=== PATIENT | male | born 1940 | race Caucasian/White ===

== ENCOUNTER 2017-08-14 14:41 | Inpatient (IN) | payer MEDICARE ==
[~2017-08-14] VITALS: Ht 175.3 cm; Wt 66.3 kg
[2017-08-14 15:19] VITALS: BP 133/77; PULSE 64; RESP 14; TEMP 98.2; O2SAT 98
[2017-08-14 16:00] VITALS: BP 125/76; PULSE 55; RESP 14; O2SAT 100
--- NOTE | 2017-08-14 16:19 | PD ---
HPI Chief Complaint: Psychiatric Symptoms Time Seen by Provider: 15:30 Travel History International Travel<30 days: No Contact w/Intl Traveler<30days: No Traveled to known affect area: No History of Present Illness HPI 77 YO M with PMH of chronic alcoholism, seizure disorder, pancreatic CA presents to the ED under Luna act from [place] [facility] from [facility]. According to the Luna act the patient was standing in the roadway and would not move after being told multiple times by the founder and chief executive officer. Patient also yelled several times " I need help" during this encounter. On arrival to [facility] the patient endorses a history of bipolar. He also stated he is noncompliant with Depakote. He reports last seizure being one year ago. He endorses drinking alcohol every day. He was administered 0.1 mg clonidine, Vistaril 50 mg by mouth and 2 mg Ativan by mouth at 9:00 this morning. Per the report from the receiving nurse the patient was transferred to the hospital because "he is beyond the scope of care [facility]." On arrival the patient is somnolent, but rouses easily to voice. He answers questions appropriately. He is resistant to exam, cursing repeatedly and closing his eyes and not responding willfully. PFSH Past Medical History Bipolar Disorder: Yes Diminished Hearing: No Seizures: Yes Tetanus Vaccination: Unknown Past Surgical History Surgical History: Unable to Obtain Social History Alcohol Use: Yes Tobacco Use: No Substance Use: No Allergies-Medications (Allergen,Severity, Reaction): Coded Allergies: No Known Allergies (Unverified , 08/14/17) Reported Meds & Prescriptions Reported Meds & Active Scripts Active Active Prescriptions or Reported Medications Unobtainable Review of Systems ROS Limitations: Uncooperative Except as stated in HPI: all other systems reviewed are Neg Physical Exam Exam Limitations: Uncooperative Narrative GENERAL: Well-nourished, well-developed thin white male in no acute distress. SKIN: Focused skin assessment warm/dry. HEAD: Normocephalic. Atraumatic. EYES: No scleral icterus. No injection or drainage. PERRLA. EOMI. NECK: Supple, trachea midline. No JVD or lymphadenopathy. CARDIOVASCULAR: Regular rate and rhythm without murmurs, gallops, or rubs. RESPIRATORY: No accessory muscle use. Breath sounds clear bilaterally. GASTROINTESTINAL: Abdomen soft, non-tender, nondistended. Active bowel sounds. MUSCULOSKELETAL: No cyanosis, or edema. NEUROLOGICAL: Oriented 4. Cranial nerves II through XII intact. Motor and sensory grossly within normal limits. Five out of 5 muscle strength in all muscle groups. Normal speech. BACK: Nontender without obvious deformity. No CVA tenderness. Data Data Last Documented VS Vital Signs Date Time Temp Pulse Resp B/P (MAP) Pulse Ox O2 Delivery O2 Flow Rate FiO2 08/14/17 18:00 54 15 144/73 (96) 100 Room Air 08/14/17 15:19 98.2 Orders Orders Complete Blood Count With Diff (08/14/17 15:30) Comprehensive Metabolic Panel (08/14/17 15:30) Electrocardiogram (08/14/17 15:30) Psych Screen (08/14/17 15:30) Drug Screen, Random Urine (08/14/17 15:30) Alcohol (Ethanol) (08/14/17 15:30) ^ Straight Catheter (08/14/17 17:36) Alcohol Withdrawal Asmt-Ciwa ONCE (08/14/17 21:07) Flumazenil Inj (Romazicon Inj) (08/14/17 21:15) Lorazepam (Ativan) (08/14/17 21:15) Lorazepam Inj (Ativan Inj) (08/14/17 21:15) Lorazepam (Ativan) (08/14/17 21:15) Lorazepam Inj (Ativan Inj) (08/14/17 21:15) Lorazepam Inj (Ativan Inj) (08/14/17 21:15) Lorazepam Inj (Ativan Inj) (08/14/17 21:15) Labs Laboratory Tests Test 08/14/17 15:40 08/14/17 17:30 White Blood Count 4.5 TH/MM3 Red Blood Count 4.09 MIL/MM3 Hemoglobin 12.9 GM/DL Hematocrit 39.6 % Mean Corpuscular Volume 96.8 FL Mean Corpuscular Hemoglobin 31.5 PG Mean Corpuscular Hemoglobin Concent 32.5 % Red Cell Distribution Width 16.4 % Platelet Count 219 TH/MM3 Mean Platelet Volume 7.8 FL Neutrophils (%) (Auto) 48.9 % Lymphocytes (%) (Auto) 40.7 % Monocytes (%) (Auto) 7.6 % Eosinophils (%) (Auto) 2.1 % Basophils (%) (Auto) 0.7 % Neutrophils # (Auto) 2.2 TH/MM3 Lymphocytes # (Auto) 1.8 TH/MM3 Monocytes # (Auto) 0.3 TH/MM3 Eosinophils # (Auto) 0.1 TH/MM3 Basophils # (Auto) 0.0 TH/MM3 CBC Comment DIFF FINAL Differential Comment Blood Urea Nitrogen 17 MG/DL Creatinine 0.79 MG/DL Random Glucose 80 MG/DL Total Protein 6.8 GM/DL Albumin 2.7 GM/DL Calcium Level 8.4 MG/DL Alkaline Phosphatase 78 U/L Aspartate Amino Transf (AST/SGOT) 30 U/L Alanine Aminotransferase (ALT/SGPT) 32 U/L Total Bilirubin 0.3 MG/DL Sodium Level 139 MEQ/L Potassium Level 4.6 MEQ/L Chloride Level 104 MEQ/L Carbon Dioxide Level 28.7 MEQ/L Anion Gap 6 MEQ/L Estimat Glomerular Filtration Rate 96 ML/MIN Ethyl Alcohol Level LESS THAN 3 MG/DL Urine Opiates Screen NEG Urine Barbiturates Screen NEG Urine Amphetamines Screen NEG Urine Benzodiazepines Screen NEG Urine Cocaine Screen NEG Urine Cannabinoids Screen NEG MDM Medical Decision Making Medical Screen Exam Complete: Yes Emergency Medical Condition: Yes Differential Diagnosis Adjustment disorder versus anxiety versus bipolar versus depression versus dementia versus electrolyte disorder versus malingering versus mood disorder versus ODD versus psychosis versus PTSD versus schizophrenia versus schizoaffective disorder versus substance-induced mood disorder versus other Narrative Course 77 YO M with PMH of chronic alcoholism, seizure disorder, pancreatic CA presents to the ED under Luna act from [place] [employer] from [facility]. According to the Luna act the patient was standing in the roadway and would not move after being told multiple times by the founder and chief executive officer. Patient also yelled several times " I need help" during this encounter. On arrival to [facility] the patient endorses a history of bipolar. He also stated he is noncompliant with Depakote. He reports last seizure being one year ago. He endorses drinking alcohol every day. He was administered 0.1 mg clonidine, Vistaril 50 mg by mouth and 2 mg Ativan by mouth at 9:00 this morning. Per the report from the receiving nurse the patient was transferred to the hospital because "he is beyond the scope of care [facility]." On arrival the patient is somnolent, but rouses easily to voice. He answers questions appropriately. He is resistant to exam, cursing repeatedly and closing his eyes and not responding willfully. EKG rate 60, sinus rhythm. WI interval 145, QRS 94, QTc 462 ms[address] Normal axis. No ST changes. Reviewed by Dr. De La Cruz. No concerning abnormalities of CBC, CMP. Tox screen negative. Alcohol less than 3. Patient was placed on CIWA protocol. He is medically clear for psychiatric evaluation. Awaiting psychiatric recommendations. Scripts Unable to Obtain Active Prescriptions or Reported Meds Candice Angela Aug 14, 2017 16:19
[2017-08-14 16:26] LABS: AUTOMATED NEUTROPHIL # 2.2 TH/MM3 (1.8-7.7); BASOPHIL % 0.7 % (0.0-2.0); EOSINOPHIL # 0.1 TH/MM3 (0-0.4); EOSINOPHIL % 2.1 % (0.0-4.0); HEMATOCRIT 39.6 % (39.0-51.0); HEMO FLAGS DIFF FINAL; LYMPH % 40.7 % (9.0-44.0); LYMPHOCYTE # 1.8 TH/MM3 (1.0-4.8); MEAN CELL VOLUME 96.8 FL (80.0-100.0); MEAN CORPUSCULAR HEMOGLOBIN 31.5 PG (27.0-34.0); MEAN CORPUSCULAR HGB CONC 32.5 % (32.0-36.0); MONO % 7.6 % (0.0-8.0); NEUT % 48.9 % (16.0-70.0); PLATELET COUNT 219 TH/MM3 (150-450); RED BLOOD COUNT 4.09 MIL/MM3 (4.50-5.90); RED CELL DISTRIBUTION WIDTH 16.4 % (11.6-17.2); WHITE BLOOD COUNT 4.5 TH/MM3 (4.0-11.0)
[2017-08-14 16:54] LABS: ALKALINE PHOSPHATASE 78 U/L (45-117); ALT (GPT) 32 U/L (12-78); TOTAL BILIRUBIN ADULT 0.3 MG/DL (0.2-1.0)
[2017-08-14 17:00] VITALS: BP 107/62; PULSE 52; RESP 17; O2SAT 100
[2017-08-14 17:07] LABS: ANION GAP 6 MEQ/L (5-15); AST (GOT) 30 U/L (15-37); BICARBONATE 28.7 MEQ/L (21.0-32.0); BLOOD UREA NITROGEN 17 MG/DL (7-18); CHLORIDE 104 MEQ/L (98-107); GLOMERULAR FILTRATION RATE 96 ML/MIN (>89); POTASSIUM 4.6 MEQ/L (3.5-5.1); SODIUM (NA) 139 MEQ/L (136-145)
[2017-08-14 17:08] LABS: ALCOHOL LESS THAN 3 MG/DL (0-5)
[2017-08-14 18:00] VITALS: BP 144/73; PULSE 54; RESP 15; O2SAT 100
[2017-08-14] MEDS ORDERED: FLUMAZENIL 0.5 MG/5 ML VIAL IV PUSH PRN (21:15)
[2017-08-14] MEDS ORDERED: LORazepam 2 MG/ML VIAL IV PUSH PRN ×4 (21:15)
[2017-08-14] MEDS ORDERED: LORazepam 1 MG TAB PO PRN (21:15)
[2017-08-14] MEDS ORDERED: LORazepam 2 MG TAB PO PRN (21:15)
[2017-08-14 21:27] VITALS: BP 157/79; PULSE 69; RESP 20; O2SAT 98
--- NOTE | 2017-08-15 13:41 | EKG ---
Date Performed: 08/14/2017 Time Performed: 15:24:45 PTAGE: 77 years EKG: Sinus rhythm Within normal limits NO PREVIOUS TRACING DOCTOR: Ian Carney Interpretating Date/Time 08/15/2017 13:41:06
--- NOTE | 2017-08-15 15:29 | PD ---
History of Present Illness Chief Complaint: Psychiatric Symptoms Time Seen by Provider: 15:00 Travel History International Travel<30 Days: No Contact w/Intl Traveler<30days: No Known affected area: No Legal Status Legal Status: Cheryl Act History of Present Illness: 77-year-old male with obvious dementia, Cheryl acted for standing in the middle of a road way and yelling in front of a military lawyer. Upon interview , the patient states he was looking for his second , from whom he is . He also states he needs to take a flight on the [employer] today. When he was asked to get out of the roadway by law enforcement, he yelled several times "I need help". Patient provides various explanations for his behavior, none of which makes sense. He is obviously confused and unable to care for himself at this time. Patient was apparently screened at [facility] and admitted to a history of bipolar disorder but did not know his medications, admitted that he consumes alcohol, but is not accurate about what he drank, and aunt has a history of seizures and and was in a car accident. There is also some history that this 77-year-old man was incarcerated. Patient is not felt to be a reliable historian. PFSH Past Medical History Bipolar Disorder: Yes Diminished Hearing: No Seizures: Yes Tetanus Vaccination: Unknown Past Surgical History Surgical History: Unable to Obtain Psychiatric History Psychiatric History Hx Psychiatric Treatment: Unknown Social History Hx Alcohol Use: Yes Hx Tobacco Use: No Hx Substance Use: No Allergies-Medications (Allergen,Severity, Reaction): Coded Allergies: No Known Allergies (Unverified , 08/14/17) Reported Meds & Prescriptions Reported Meds & Active Scripts Active Active Prescriptions or Reported Medications Unobtainable Review of Systems ROS Limitations: Poor Historian Except as stated in HPI: all other systems reviewed are Neg Exam Alert: Yes [place]: Person Mood: Anxious Affect: Labile Speech: Clear Eye Contact: Normal Insight/Judgement Impaired MDM Medical Decision Making Medical Record Reviewed: Yes Assessment/Plan Patient interviewed at bedside, medical record reviewed and case discussed with nurse. Patient likely has a history of cognitive deficits, whether they be the result of dementia, psychiatric process or both. He is dangerous to himself and unable to care for himself at this time. He does meet criteria for Luna acted involuntary psychiatric hospitalization. Orders Orders Complete Blood Count With Diff (08/14/17 15:30) Comprehensive Metabolic Panel (08/14/17 15:30) Electrocardiogram (08/14/17 15:30) Psych Screen (08/14/17 15:30) Drug Screen, Random Urine (08/14/17 15:30) Alcohol (Ethanol) (08/14/17 15:30) ^ Straight Catheter (08/14/17 17:36) Alcohol Withdrawal Asmt-Ciwa ONCE (08/14/17 21:07) Flumazenil Inj (Romazicon Inj) (08/14/17 21:15) Lorazepam (Ativan) (08/14/17 21:15) Lorazepam Inj (Ativan Inj) (08/14/17 21:15) Lorazepam (Ativan) (08/14/17 21:15) Lorazepam Inj (Ativan Inj) (08/14/17 21:15) Lorazepam Inj (Ativan Inj) (08/14/17 21:15) Lorazepam Inj (Ativan Inj) (08/14/17 21:15) Diet Regular Basic (08/15/17 Breakfast) Diet Regular Basic (08/15/17 Lunch) Results Vital Signs Date Time Temp Pulse Resp B/P (MAP) Pulse Ox O2 Delivery O2 Flow Rate FiO2 08/14/17 21:27 69 20 157/79 (105) 98 Room Air 08/14/17 18:00 54 15 144/73 (96) 100 Room Air 08/14/17 17:00 52 17 107/62 (77) 100 Room Air 08/14/17 16:00 55 14 125/76 (92) 100 Room Air 08/14/17 15:34 64 14 Laboratory Tests Test 08/14/17 15:40 08/14/17 17:30 White Blood Count 4.5 Red Blood Count 4.09 Hemoglobin 12.9 Hematocrit 39.6 Mean Corpuscular Volume 96.8 Mean Corpuscular Hemoglobin 31.5 Mean Corpuscular Hemoglobin Concent 32.5 Red Cell Distribution Width 16.4 Platelet Count 219 Mean Platelet Volume 7.8 Neutrophils (%) (Auto) 48.9 Lymphocytes (%) (Auto) 40.7 Monocytes (%) (Auto) 7.6 Eosinophils (%) (Auto) 2.1 Basophils (%) (Auto) 0.7 Neutrophils # (Auto) 2.2 Lymphocytes # (Auto) 1.8 Monocytes # (Auto) 0.3 Eosinophils # (Auto) 0.1 Basophils # (Auto) 0.0 CBC Comment DIFF FINAL Differential Comment Blood Urea Nitrogen 17 Creatinine 0.79 Random Glucose 80 Total Protein 6.8 Albumin 2.7 Calcium Level 8.4 Alkaline Phosphatase 78 Aspartate Amino Transf (AST/SGOT) 30 Alanine Aminotransferase (ALT/SGPT) 32 Total Bilirubin 0.3 Sodium Level 139 Potassium Level 4.6 Chloride Level 104 Carbon Dioxide Level 28.7 Anion Gap 6 Estimat Glomerular Filtration Rate 96 Ethyl Alcohol Level LESS THAN 3 Urine Opiates Screen NEG Urine Barbiturates Screen NEG Urine Amphetamines Screen NEG Urine Benzodiazepines Screen NEG Urine Cocaine Screen NEG Urine Cannabinoids Screen NEG Diagnosis Primary Impression: Dementia with behavioral disturbance Additional Impression: Alzheimer's dementia with behavioral disturbance Prescriptions Unable to Obtain Active Prescriptions or Reported Meds Problem Qualifiers Ian Jerome MD Aug 15, 2017 15:29
[2017-08-15 16:39] VITALS: BP 199/91; PULSE 71; RESP 20; O2SAT 100
[2017-08-16 04:53] VITALS: BP 164/86; PULSE 75; RESP 20; TEMP 97.5; O2SAT 99
[2017-08-16 09:00] VITALS: BP 132/69; PULSE 77; RESP 16; O2SAT 97
[2017-08-16 15:13] VITALS: BP 167/84; PULSE 66; RESP 16; O2SAT 100
[2017-08-16] MEDS ORDERED: CREO3000 PO (18:35)
[2017-08-16] MEDS ORDERED: DEPA500T3 PO (18:36)
[2017-08-16] MEDS ORDERED: PANT20 PO (18:36)
[2017-08-16 18:37] VITALS: BP 170/88; PULSE 70; RESP 18; O2SAT 100
[2017-08-16] MEDS ORDERED: FERR325C PO (18:37)
[2017-08-16] MEDS ORDERED: LORazepam 2 MG/ML VIAL - age > 65 yrs IM PRN ×2 (20:15→22:00)
[2017-08-16] MEDS ORDERED: ALUMINUM/MAGNESIUM/SIMETH 30 ML CUP PO PRN (20:15)
[2017-08-16] MEDS ORDERED: ACETAMINOPHEN 325 MG TAB PO PRN (20:15)
[2017-08-16] MEDS ORDERED: MAGNESIUM HYDROXIDE SUSP 30 ML CUP PO PRN (20:15)
[2017-08-16] MEDS: REMOVE OLD NICOTINE PATCH T-DERMAL SCH ×2 (21:00→23:31)
[2017-08-16] MEDS ORDERED: LORazepam 0.5 MG TAB age > 65 yrs PO PRN (22:00)
[2017-08-16 23:17] VITALS: BP 167/79; PULSE 68; RESP 18; TEMP 98.3
[2017-08-17 06:02] VITALS: BP 177/86; PULSE 78; RESP 18; TEMP 98.2
[2017-08-17 08:38] LABS: HDL CHOLESTEROL 81.1 MG/DL (40.0-60.0); LDL CHOLESTEROL 51 MG/DL (0-99)
[2017-08-17 08:57] LABS: ANION GAP 6 MEQ/L (5-15); BLOOD UREA NITROGEN 13 MG/DL (7-18); CHLORIDE 99 MEQ/L (98-107); GLOMERULAR FILTRATION RATE 105 ML/MIN (>89); POTASSIUM 4.7 MEQ/L (3.5-5.1); SODIUM (NA) 136 MEQ/L (136-145)
[2017-08-17] MEDS: NICOTINE 21 MG/24 HR PATCH T-DERMAL SCH (09:00)
[2017-08-17 11:18] LABS: HEMOGLOBIN A1a 1.2 %; HEMOGLOBIN A1b 0.8 %; HEMOGLOBIN LA1C 2.3 %; HEMOGLOBIN P3 5.3 %
--- NOTE | 2017-08-17 15:19 | HHI.HP ---
Provisional Diagnosis Admission Date Aug 16, 2017 at 19:38 Paloma I. Unspecified psychosis; alcohol use disorder Paloma II. deferred Paloma III. Seizure dso?, history of pancreatic cancer s/p Whipple procedure Paloma IV. poor social support Paloma V. 40 Certification of Person's Competence To Provide Express and Informed Consent I have personally examined Hesham Katz , a person being served at [facility] on, Aug 17, 2017 15:04. Express and informed consent means consent voluntarily given in writing, by a competent person, after sufficient explanation and disclosure of the subject matter involved to enable the person to make a knowing and willful decision without any element of force, fraud, deceit, duress, or other form of constraint or coercion. This person is 18 years of age or older, is not now known to be incompetent to consent to treatment with a guardian advocate, and does not have a health care surrogate or proxy currently making medical treatment decisions. I have found this person to be one of the following: [] Competent to provide express and informed consent, as defined above, for voluntary admission to this facility and is competent to provide express and informed consent for treatment. He/she has the consistent capacity to make well reasoned, willful, and knowing decisions concerning his or her medical or mental health treatment. The person fully and consistently understands the purpose of the admission for examination/placement and is fully capable of personally exercising all rights assured [place] [x] Incompetent to provide express and informed consent to voluntary admission, and this is incompetent to provide express and informed consent to treatment. The person must be transferred to involuntary status and a petition for a guardian advocate filed with the Circuit Court. [] Refusing to provide express and informed consent to voluntary admission but is competent to provide express and informed consent for treatment. The person must be discharged or transferred to involuntary status. Form shall be completed within 24 hours of a person's arrival at the receiving facility and filed in the clinical record of each person: 1. Admitted on a voluntary basis 2. Permitted to provide express and informed consent to his/her own treatment 3. Allowed to transfer from involuntary to voluntary status 4. Prior to permitting a person to consent to his or her own treatment after having been previously found incompetent to consent to treatment. History of Present Illness Capacity: Has Capacity (capacity for medications) HPI Patient is a 77 y/o man, with in care home, reports common law in [facility], retired living on social security benefits, domiciled alone, past psychiatric history of bipolar disorder as per patient, one prior remote psychiatric admission, no previous suicide attempt or self- injurious behavior, who was brought into the hospital under Luna act as it was reported patient was standing in the middle of the roadway and yelling fun of criminal defense lawyer. Patient was transferred to the inpatient psychiatric unit for further management and evaluation. Patient was found walking around the unit but able to engage in interview today. Patient states that he was Luna acted for supposedly wandering. He stated that he has thought his common- law had arrived from [place] and he believes she was wandering here and had gone to look for her. He states that he had thought his had told him to meet him at a night club but upon arriving there around 2 AM found that it was closed which he then proceeded to a restaurant near and waited there about 20 minutes and decided to look for her at a school campus. He states that after being unsuccessful in finding her decided to go back to his house where he had difficulty charging his phone. He states that he then proceeded to knock on various neighbors homes at 3 AM and was found walking in the street had which police had brought him into the hospital. He also mentions that there was a neighbor that with previous criminal history had stolen something from him. Currently patient states feeling okay denies any SI or HI, AVH or delusions at this time. Patient later approach tech writer and began providing demographic information. Psychiatric family history: Denies Past psychiatric history: Self-reported diagnosis of bipolar disorder, one remote previous psychiatric hospitalization, denies any previous suicide attempt or self-injurious behavior. Reports having been prescribed Depakote by Dr. Mason his primary care doctor which she last saw a couple of months ago. Substance use disorder: Alcohol use daily with about a half a bottle of wine in a couple of beers, last drink was on 08/14/17 which she drank half a bottle of wine in a couple of beers. Patient reports he had been attending AA meetings for 35 years but relapsed about 5 years ago when his was put in a care home. Patient denies any previous illegal substance use. Past medical history: Hypertension, pancreatitis cancer status post Whipple procedure (currently on pancreatic enzymes supplements and Protonix). Allergies: Penicillin Social history: with in care home, also reports having, the in [place], retired also security benefits, lives alone. Contact: Elaine Rivera [phone]. Review of Systems Except as stated in HPI: all other systems reviewed are Neg Past Psych History Violence risk - others (6 mos) low Violence risk - self (6 mos) low Substance Abuse History Drugs/Alcohol past 12 months Alcohol use daily with about a half a bottle of wine in a couple of beers, last drink was on 08/14/17 which she drank half a bottle of wine in a couple of beers. Patient reports he had been attending AA meetings for 35 years but relapsed about 5 years ago when his was put in a care home. Patient denies any previous illegal substance use. Past Family Social History Coded Allergies: Penicillins (Verified Allergy, Unknown, 08/16/17) Reported Medications Ferrous Sulfate (Iron) 325 Mg Cap, 325 MG PO BIDPC for Nutritional Supplement, # 60 TAB 0 Refills 08/16/17 Divalproex ER (Depakote ER) 500 Mg Sarah, 1000 MG PO DAILY for Control Seizures , #60 TAB 0 Refills 08/16/17 Pantoprazole (Protonix) 20 Mg Tab, 20 MG PO DAILY for Reflux, #30 TAB 0 Refills 08/16/17 Pancrelipase (Creon) 3,000-9,500-15,000 Units Cap, 1 CAP PO TIDPC for Digestive Aid, #90 CAP 0 Refills 08/16/17 Current Medications Medications (Trade) Dose Ordered Sig/Mely Route Start Time Stop Time Status Last Admin (Romazicon Inj) 0.2 mg Q1M PRN IV PUSH 08/14/17 21:15 (Ativan) 1 mg Q4H PRN PO 08/14/17 21:15 08/16/17 07:24 (Ativan Inj) 1 mg Q4H PRN IV PUSH 08/14/17 21:15 08/15/17 18:26 (Ativan) 2 mg Q2H PRN PO 08/14/17 21:15 (Ativan Inj) 2 mg Q2H PRN IV PUSH 08/14/17 21:15 (Ativan Inj) 2 mg Q1H PRN IV PUSH 08/14/17 21:15 (Ativan Inj) 2 mg Q15M PRN IV PUSH 08/14/17 21:15 (Ativan) 0.5 mg Q12H PRN PO 08/16/17 20:15 (Ativan Inj) 0.5 mg Q12H PRN IM 08/16/17 20:15 (Tylenol) 650 mg Q4H PRN PO 08/16/17 20:15 (Milk Of Magnesia Liq) 30 ml DAILY PRN PO 08/16/17 20:15 (Mag-Al Plus Susp Liq) 30 ml Q6H PRN PO 08/16/17 20:15 (Habitrol 21 Mg Patch.24 Hr) 1 patch DAILY T-DERMAL 08/17/17 09:00 Miscellaneous Information 1 HS T-DERMAL 08/16/17 21:00 (Protonix) 20 mg DAILY PO 08/17/17 14:30 (Ferrous Sulfate) 325 mg BIDPC PO 08/17/17 18:00 Non-Formulary Medication 1 cap TIDPC PO 08/17/17 18:30 UNV Family History Patient denies Social History with in care home, also reports having, the in [facility], retired also security benefits, lives alone. Contact: Elaine Rivera [phone] ( common law in [facility]) Patient's Strengths (min. 2) Verbal and communicative Physical Exam Patient found to be sitting on hospital bed noted not to be in acute distress, no gross motor abnormalities, no tremors of EPS, noted psychomotor retardation Vital Signs Vital Signs Date Time Temp Pulse Resp B/P (MAP) Pulse Ox O2 Delivery O2 Flow Rate FiO2 08/17/17 06:02 98.2 78 18 177/86 (116) 08/16/17 18:37 100 Room Air I/O 08/17/17 08/17/17 08/18/17 08:00 16:00 00:00 Intake Total 720 ml Balance 720 ml Lab Results Test 08/17/17 07:15 Blood Urea Nitrogen 13 MG/DL Creatinine 0.73 MG/DL Random Glucose 102 MG/DL Calcium Level 9.0 MG/DL Sodium Level 136 MEQ/L Potassium Level 4.7 MEQ/L Chloride Level 99 MEQ/L Carbon Dioxide Level 31.0 MEQ/L Anion Gap 6 MEQ/L Estimat Glomerular Filtration Rate 105 ML/MIN Hemoglobin A1c 5.4 % Triglycerides Level 76 MG/DL Cholesterol Level 147 MG/DL LDL Cholesterol 51 MG/DL HDL Cholesterol 81.1 MG/DL Cholesterol/HDL Ratio 1.81 RATIO Valproic Acid (Depakene) Level 6 MCG/ML Mental Status Examination Appearance Patient appears stated age, fair grooming and hygiene, in casual clothing, calm and cooperative interview. Fair eye contact Speech: Unremarkable Orientation: x3 Memory: Recent (impaired) Thought Process: Tangential (at times), Other (disorganized at times) Thought Content: Unremarkable Language fluent and spontaneous Fund of Knowledge fair Hallucination Type: None Attention and Concentration: Good Suicidal Ideation: No Previous Suicide Attempts: No Homicidal Ideation: No Previous Homicide Attempts: No Insight: Poor Judgment: Poor Affect: Anxious Mood: Other ("fine") Motor Activity: Normal gait Assessment & Plan Problem List: (1) Unspecified psychosis ICD Codes: F29 - Unspecified psychosis not due to a substance or known physiological condition Assessment & Plan Patient is a 77 y/o man with a self-reported diagnosis of bipolar disorder, alcohol use disorder was brought in to work actively being found standing in the middle of the roadway and yelling at police officers. Patient noted to be somewhat disorganized at times and tangential during interview. Patient with history of heavy alcohol use and despite BAL being negative in ED. Patient's presentation is possibly psychosis vs. psychosis secondary to alcohol use, vs. neurocognitive disorder. Collateral information pending. Will restart depakote for history of seizure control. VPA level was subtherapeutic. Will defer starting neuroleptic for now and will continue to observe mood and behavior. Discharge planning in progress. Petition for involuntary admission completed. Second opinion requested. Discharge Planning At risk for further decompensation if at lower level of care Lane Hernandez MD Aug 17, 2017 15:19
[2017-08-17] MEDS: PANTOPRAZOLE SOD 20 MG DELAYED RELEASE TAB PO SCH (15:22)
--- NOTE | 2017-08-17 15:47 | PD.PSY.CON ---
Provisional Diagnosis Admission Date Aug 16, 2017 at 19:38 Cedar I. Unspecified psychosis; alcohol use disorder Cedar II. deferred Cedar III. Seizure dso?, history of pancreatic cancer s/p Whipple procedure Cedar IV. poor social support Cedar V. 40 History of Present Illness Service Psychiatry Consult Requested By Reason for Consult Second opinion Primary Care Physician Unknown HPI Patient is a 77 y/o man, with in halfway, reports common law in [facility], retired living on social security benefits, domiciled alone, past psychiatric history of bipolar disorder as per patient, one prior remote psychiatric admission, no previous suicide attempt or self- injurious behavior, who was brought into the hospital under Luna act as it was reported patient was standing in the middle of the roadway and yelling fun of civil lawyer. Patient was transferred to the inpatient psychiatric unit for further management and evaluation. Patient was found walking around the unit but able to engage in interview today. Patient states that he was Luna acted for supposedly wandering. He stated that he has thought his common- law had arrived from [place] and he believes she was wandering here and had gone to look for her. He states that he had thought his had told him to meet him at a night club but upon arriving there around 2 AM found that it was closed which he then proceeded to a restaurant near by and waited there about 20 minutes and decided to look for her at a school campus. He states that after being unsuccessful in finding her decided to go back to his house where he had difficulty charging his phone. He states that he then proceeded to knock on various neighbors homes at 3 AM and was found walking in the street had which police had brought him into the hospital. He also mentions that there was a neighbor that with previous criminal history had stolen something from him. Currently patient states feeling okay denies any SI or HI, AVH or delusions at this time. Patient later approach brief writer and began providing demographic information. Patient was seen for second opinion. Patient was seen along with Dr. Hernandez and social work administrator Niki. Patient reports that he has been drinking alcohol heavily. Recent Luna act by law enforcement system the related with disorganized behavior secondary to alcohol intoxication. However, patient is now clinically sober, but continued to behave erratically, with frequent thought derailment, disorganized thoughts. He denies suicidal and homicidal ideation, he denies visual and auditory hallucinations. The patient is oriented 3. Review of Systems Other No somatic complaints Past Family Social History Coded Allergies: Penicillins (Verified Allergy, Unknown, 08/16/17) Reported Medications Ferrous Sulfate (Iron) 325 Mg Cap, 325 MG PO BIDPC for Nutritional Supplement, # 60 TAB 0 Refills 08/16/17 Divalproex ER (Depakote ER) 500 Mg Sarah, 1000 MG PO DAILY for Control Seizures , #60 TAB 0 Refills 08/16/17 Pantoprazole (Protonix) 20 Mg Tab, 20 MG PO DAILY for Reflux, #30 TAB 0 Refills 08/16/17 Pancrelipase (Creon) 3,000-9,500-15,000 Units Cap, 1 CAP PO TIDPC for Digestive Aid, #90 CAP 0 Refills 08/16/17 Current Medications Medications (Trade) Dose Ordered Sig/Mely Route Start Time Stop Time Status Last Admin (Romazicon Inj) 0.2 mg Q1M PRN IV PUSH 08/14/17 21:15 (Ativan) 1 mg Q4H PRN PO 08/14/17 21:15 08/16/17 07:24 (Ativan Inj) 1 mg Q4H PRN IV PUSH 08/14/17 21:15 08/15/17 18:26 (Ativan) 2 mg Q2H PRN PO 08/14/17 21:15 (Ativan Inj) 2 mg Q2H PRN IV PUSH 08/14/17 21:15 (Ativan Inj) 2 mg Q1H PRN IV PUSH 08/14/17 21:15 (Ativan Inj) 2 mg Q15M PRN IV PUSH 08/14/17 21:15 (Ativan) 0.5 mg Q12H PRN PO 08/16/17 20:15 (Ativan Inj) 0.5 mg Q12H PRN IM 08/16/17 20:15 (Tylenol) 650 mg Q4H PRN PO 08/16/17 20:15 (Milk Of Magnesia Liq) 30 ml DAILY PRN PO 08/16/17 20:15 (Mag-Al Plus Susp Liq) 30 ml Q6H PRN PO 08/16/17 20:15 (Habitrol 21 Mg Patch.24 Hr) 1 patch DAILY T-DERMAL 08/17/17 09:00 Miscellaneous Information 1 HS T-DERMAL 08/16/17 21:00 (Protonix) 20 mg DAILY PO 08/17/17 14:30 08/17/17 15:22 (Ferrous Sulfate) 325 mg BIDPC PO 08/17/17 18:00 Patient Own Medication PT OWN MED: PANCRELIPASE (CREON) 30... TIDPC PO 08/17/17 18:30 Future Hold (Depakote Dr) 500 mg BID PO 08/17/17 21:00 Patient's Strengths (min. 2) Verbal and communicative Physical Exam Vital Signs Vital Signs Date Time Temp Pulse Resp B/P (MAP) Pulse Ox O2 Delivery O2 Flow Rate FiO2 08/17/17 06:02 98.2 78 18 177/86 (116) 08/16/17 18:37 100 Room Air I/O 08/17/17 08/17/17 08/18/17 08:00 16:00 00:00 Intake Total 720 ml Balance 720 ml Lab Results Test 08/17/17 07:15 Blood Urea Nitrogen 13 MG/DL Creatinine 0.73 MG/DL Random Glucose 102 MG/DL Calcium Level 9.0 MG/DL Sodium Level 136 MEQ/L Potassium Level 4.7 MEQ/L Chloride Level 99 MEQ/L Carbon Dioxide Level 31.0 MEQ/L Anion Gap 6 MEQ/L Estimat Glomerular Filtration Rate 105 ML/MIN Hemoglobin A1c 5.4 % Triglycerides Level 76 MG/DL Cholesterol Level 147 MG/DL LDL Cholesterol 51 MG/DL HDL Cholesterol 81.1 MG/DL Cholesterol/HDL Ratio 1.81 RATIO Valproic Acid (Depakene) Level 6 MCG/ML Mental Status Examination Speech: Unremarkable Orientation: x3 Memory: Recent (impaired) Thought Process: Tangential (at times), Other (disorganized at times) Thought Content: Unremarkable Hallucination Type: None Attention and Concentration: Good Suicidal Ideation: No Previous Suicide Attempts: No Homicidal Ideation: No Previous Homicide Attempts: No Insight: Poor Judgment: Poor Affect: Anxious Mood: Other ("fine") Motor Activity: Normal gait Assessment & Plan Problem List: (1) Unspecified psychosis ICD Codes: F29 - Unspecified psychosis not due to a substance or known physiological condition Assessment & Plan: Patient was seen and examined along a with Dr. Hernandez, I agree and concur with his assessment and plan. Consult appreciated. Assessment & Plan Estimated LOS: days Lebron Cheek MD Aug 17, 2017 15:47
[2017-08-17 16:57] VITALS: BP 175/90; PULSE 76; RESP 18; TEMP 97.5; O2SAT 100
[2017-08-17] MEDS: FERROUS SULFATE 325 MG (65 MG ELEMENTAL IRON) TAB PO SCH (18:22)
[2017-08-17] MEDS ORDERED: CREON PO SCH (18:30)
[2017-08-17] MEDS: DIVALPROEX DR 500 MG TABEC PO SCH (20:31)
[2017-08-18 06:05] VITALS: BP 159/76; PULSE 87; RESP 20; TEMP 98.2; O2SAT 100
[2017-08-18] MEDS: PANTOPRAZOLE SOD 20 MG DELAYED RELEASE TAB PO SCH (07:38)
[2017-08-18] MEDS: DIVALPROEX DR 500 MG TABEC PO SCH ×2 (08:51→20:29)
[2017-08-18] MEDS: FERROUS SULFATE 325 MG (65 MG ELEMENTAL IRON) TAB PO SCH ×2 (08:51→18:28)
[2017-08-18] MEDS: NICOTINE 21 MG/24 HR PATCH T-DERMAL SCH (08:52)
--- NOTE | 2017-08-18 15:59 | HHI.PYPN ---
Subjective Remarks Patient seen for follow-up, chart reviewed. Patient noted by staff to be intrusive at times with poor maintenence of boudaries with others. Patient noted to continue to be paranoid about his neighbor who is a "drug addict" whom he states has stolen things from him. He mentions having had a therapist, Rosette , whom he has been seeing for the past 6 months (last being one week ago) for depression. Patient also recalls having attended many men's groups and AA meetings in the past. He states sleeping "not bad", mood being "pretty bad" as he states is unable to get in touch with his common law in [facility], good appetite, and mood being "not too bad". Patient denies any perceptual disturbances. Patient also mentions a restaurant who he visited in the past and was told that he could not return for at least one year but did not elaborate reasons why. Jazz Musician was told by another patient that Mr. Katz has been inappropriate with her and had asked her to him. Review of Systems Except as stated in HPI: all other systems reviewed are Neg Objective Alert: Yes [place]: Person Mood: Anxious Affect: Labile Memory Intact: Immediate, Remote, Comment Hallucinations: Other (denies) Delusions: Yes (denies) Delusion Type: Paranoid (pertaining to his neighbor) Suicidal: Ideation Homicidal: Ideation (denies) Insight/Judgment poor insight, impulse control and limited judgment Vitals/IOs Vital Signs Date Time Temp Pulse Resp B/P (MAP) Pulse Ox O2 Delivery O2 Flow Rate FiO2 08/18/17 06:05 98.2 87 20 159/76 (103) 100 08/16/17 18:37 Room Air Intake and Output 08/18/17 08/18/17 08/19/17 08:00 16:00 00:00 Intake Total 0 ml Balance 0 ml Assessment & Plan Problem List: (1) Unspecified psychosis ICD Codes: F29 - Unspecified psychosis not due to a substance or known physiological condition Assessment & Plan Patient noted to be alert and oriented but also noted to be intrusive, inappropriate with other patients, with paranoia pertaining to his neighbor. Collateral information pending from therapist and in [facility]. Attempts were made to contact his common law but unsuccessful. Will start Abilify 5mg PO HS. Discharge planning in progress. Justification for Cont. Inpt. At risk for further decompensation if at lower level of care. Lane Hernandez MD Aug 18, 2017 15:59
[2017-08-18 18:00] VITALS: BP 170/74; PULSE 92; RESP 18; TEMP 98.4; O2SAT 100
--- NOTE | 2017-08-18 18:21 | PD.CONS ---
HPI Service [facility] Hospitalists Consult Requested By Dr Hernandez Reason for Consult h/o pancreatic cancer sp whipple procedure, h/o seizures Primary Care Physician Unknown Diagnoses: History of Present Illness This is a 77-year-old male with past medical history significant for bipolar disorder, seizures, alcohol abuse and empiric cancer status post Whipple procedure as per patient 16 years ago. The patient was brought in to [facility] and her Luna act as it was reported patient was standing in the middle of the roadway and yelling at him for missed officers. The patient wanted transfer to the inpatient psychiatric unit for further management and evaluation. The patient states that he thought his, low had arrived from [place] anti-belief that she was wondering here and he had gone to look for her. He stated that he had thought his had told him to mid him at that night club but upon arriving there around 2 AM found that he was closest after which he then proceeded to a restaurant nearby and waited there for about 20 minutes and decided to look for her at a school campus. He states that after being unsuccessful in finding her decided to go back to his house where he could not charges phone. He then proceeded to knock on various neighbors homes at 3 AM and was found walking the streets after which police brought him into the hospital. The patient currently feels fine and denies suicidal ideation or homicidal ideation. Denies chest pain, shortness of breath, fevers, chills, dysuria, abdominal pain, nausea or vomiting. He does admit to having some bloating but this is related to not getting his medications that he gets at home. Review of Systems As per history of present illness, other systems reviewed by me and negative Past Family Social History Allergies: Coded Allergies: Penicillins (Verified Allergy, Unknown, 08/16/17) Past Medical History Self-reported diagnosis of bipolar disorder Seizure disorder Alcohol abuse As per patient pancreatic cancer status post Whipple procedure 16 years ago. Past Surgical History Whipple procedure Urethral dilatation Reported Medications Reported Meds & Active Scripts Active Reported Iron (Ferrous Sulfate) 325 Mg Cap 325 Mg PO BIDPC Depakote ER (Divalproex Sodium) 500 Mg Sarah 1,000 Mg PO DAILY Protonix (Pantoprazole Sodium) 20 Mg Tab 20 Mg PO DAILY Creon (Pancrelipase) 3,000-9,500-15,000 Units Cap 1 Cap PO TIDPC Active Ordered Medications Current Medications Medications (Trade) Dose Ordered Sig/Mely Route Start Time Stop Time Status Last Admin (Romazicon Inj) 0.2 mg Q1M PRN IV PUSH 08/14/17 21:15 (Ativan) 1 mg Q4H PRN PO 08/14/17 21:15 08/16/17 07:24 (Ativan Inj) 1 mg Q4H PRN IV PUSH 08/14/17 21:15 08/15/17 18:26 (Ativan) 2 mg Q2H PRN PO 08/14/17 21:15 (Ativan Inj) 2 mg Q2H PRN IV PUSH 08/14/17 21:15 (Ativan Inj) 2 mg Q1H PRN IV PUSH 08/14/17 21:15 (Ativan Inj) 2 mg Q15M PRN IV PUSH 08/14/17 21:15 (Ativan) 0.5 mg Q12H PRN PO 08/16/17 20:15 (Ativan Inj) 0.5 mg Q12H PRN IM 08/16/17 20:15 (Tylenol) 650 mg Q4H PRN PO 08/16/17 20:15 (Milk Of Magnesia Liq) 30 ml DAILY PRN PO 08/16/17 20:15 (Mag-Al Plus Susp Liq) 30 ml Q6H PRN PO 08/16/17 20:15 (Habitrol 21 Mg Patch.24 Hr) 1 patch DAILY T-DERMAL 08/17/17 09:00 Miscellaneous Information 1 HS T-DERMAL 08/16/17 21:00 (Protonix) 20 mg DAILY PO 08/17/17 14:30 08/18/17 07:38 (Ferrous Sulfate) 325 mg BIDPC PO 08/17/17 18:00 08/18/17 08:51 Patient Own Medication PT OWN MED: PANCRELIPASE (CREON) 30... TIDPC PO 08/17/17 18:30 Future Hold (Depakote Dr) 500 mg BID PO 08/17/17 21:00 08/18/17 08:51 (Abilify) 5 mg HS PO 08/18/17 21:00 Family History Denies family history of cancer. States his father of a stroke and his mother of a heart attack. Social History Patient denies smoking. The patient drinks alcohol, he states a couple beers per day. Patient states that he was in AA for 35 years. Patient states that his lives in a custodial. Physical Exam Vital Signs Vital Signs Date Time Temp Pulse Resp B/P (MAP) Pulse Ox O2 Delivery O2 Flow Rate FiO2 08/18/17 06:05 98.2 87 20 159/76 (103) 100 Physical Exam GENERAL: This is a well-nourished, well-developed patient, in no apparent distress. SKIN: No rashes, ecchymoses or lesions. Cool and dry. HEAD: Atraumatic. Normocephalic. No temporal or scalp tenderness. EYES: Pupils equal round and reactive. Extraocular motions intact. No scleral icterus. No injection or drainage. ENT: Nose without bleeding, purulent drainage or septal hematoma. Throat without erythema, tonsillar hypertrophy or exudate. Uvula midline. Airway patent. NECK: Trachea midline. No JVD or lymphadenopathy. Supple, nontender, no meningeal signs. CARDIOVASCULAR: Regular rate and rhythm without murmurs, gallops, or rubs. RESPIRATORY: Clear to auscultation. Breath sounds equal bilaterally. No wheezes , rales, or rhonchi. GASTROINTESTINAL: Abdomen soft, non-tender, nondistended. No hepato-splenomegaly , or palpable masses. No guarding. MUSCULOSKELETAL: Extremities without clubbing, cyanosis, or edema. No joint tenderness, effusion, or edema noted. No calf tenderness. Negative Homans sign bilaterally. NEUROLOGICAL: Awake and alert. Cranial nerves II through XII intact. Motor and sensory grossly within normal limits. Five out of 5 muscle strength in all muscle groups. Normal speech. Result Diagram: 08/14/17 1540 08/17/17 0715 Imaging Current Medications Medications (Trade) Dose Ordered Sig/Mely Route Start Time Stop Time Status Last Admin (Romazicon Inj) 0.2 mg Q1M PRN IV PUSH 08/14/17 21:15 (Ativan) 1 mg Q4H PRN PO 08/14/17 21:15 08/16/17 07:24 (Ativan Inj) 1 mg Q4H PRN IV PUSH 08/14/17 21:15 08/15/17 18:26 (Ativan) 2 mg Q2H PRN PO 08/14/17 21:15 (Ativan Inj) 2 mg Q2H PRN IV PUSH 08/14/17 21:15 (Ativan Inj) 2 mg Q1H PRN IV PUSH 08/14/17 21:15 (Ativan Inj) 2 mg Q15M PRN IV PUSH 08/14/17 21:15 (Ativan) 0.5 mg Q12H PRN PO 08/16/17 20:15 (Ativan Inj) 0.5 mg Q12H PRN IM 08/16/17 20:15 (Tylenol) 650 mg Q4H PRN PO 08/16/17 20:15 (Milk Of Magnesia Liq) 30 ml DAILY PRN PO 08/16/17 20:15 (Mag-Al Plus Susp Liq) 30 ml Q6H PRN PO 08/16/17 20:15 (Habitrol 21 Mg Patch.24 Hr) 1 patch DAILY T-DERMAL 08/17/17 09:00 Miscellaneous Information 1 HS T-DERMAL 08/16/17 21:00 (Protonix) 20 mg DAILY PO 08/17/17 14:30 08/18/17 07:38 (Ferrous Sulfate) 325 mg BIDPC PO 08/17/17 18:00 08/18/17 08:51 Patient Own Medication PT OWN MED: PANCRELIPASE (CREON) 30... TIDPC PO 08/17/17 18:30 Future Hold (Depakote Dr) 500 mg BID PO 08/17/17 21:00 08/18/17 08:51 (Abilify) 5 mg HS PO 08/18/17 21:00 Assessment and Plan Assessment and Plan This is a 77-year-old male with self-reported history bipolar disorder, seizure disorder, pancreatic cancer status post Whipple procedure who was brought in to [facility] under Luna act after being found wandering in the streets. 1. Psychosis Management as per psychiatry. Psychosis could be secondary to alcohol use versus neurocognitive disorder. Patient started on Abilify 5 mg when necessary at bedtime. 2. Seizure disorder No seizure episodes. As per patient he is being treated on Depakote. 3. Hypertension Patient denies any history of hypertension, however upon review of vital signs it is noted that the patient is hypertensive with a systolic blood pressure in the 170s. I will start the patient on amlodipine 5 mg by mouth daily. 4. History of pancreatic cancer status post Whipple procedure Patient has surgical abdominal scars. Continue Creon, currently there is no abdominal pain, weight loss or any other warning signs and symptoms. Eric Neumann MD Aug 18, 2017 18:21
[2017-08-18] MEDS: REMOVE OLD NICOTINE PATCH T-DERMAL SCH (20:29)
[2017-08-18] MEDS ORDERED: ARIPiprazole 5 MG TAB PO SCH (21:00)
[2017-08-19 05:12] VITALS: BP 111/66; PULSE 70; RESP 18; TEMP 97.8; O2SAT 96
[2017-08-19] MEDS: amLODIPine BESYLATE 5 MG TAB PO SCH (07:31)
[2017-08-19] MEDS: FERROUS SULFATE 325 MG (65 MG ELEMENTAL IRON) TAB PO SCH ×2 (07:31→17:45)
[2017-08-19] MEDS: DIVALPROEX DR 500 MG TABEC PO SCH ×2 (07:31→21:00)
[2017-08-19] MEDS: NICOTINE 21 MG/24 HR PATCH T-DERMAL SCH (07:32)
[2017-08-19] MEDS: PANTOPRAZOLE SOD 20 MG DELAYED RELEASE TAB PO SCH (07:32)
[2017-08-19 12:38] LABS: BACTERIA, URINE OCC /hpf; BLOOD, URINE TRACE (NEG); COMMENT (UR) CULTURE INDICATED; CULTURE IF INDICATED CULTURE INDICATED; GLUCOSE,URINE NEG (NEG); KETONE, URINE NEG (NEG); MUCUS URINE FEW /lpf (OCC); NITRITE,URINE NEG (NEG); PH, URINE 6.5 (5.0-8.5); URINE COLOR YELLOW (YELLW/STRAW)
--- NOTE | 2017-08-19 16:15 | HHI.PYPN ---
Subjective Remarks Patient seen for follow-up, chart reviewed. Discussion with nursing reported that patient noted be require redirection on the unit as he is intrusive with other patients. Patient noted to be irritable and asking if his had been contacted. Patient perseveative on going to [facility] to meet up with his . He states that he has been able to care for himself and has made his way to see his common law in [facility]. Patient had mentioned yesterday that he had been told not to return from a restaurant and elaborated to day that it has happened in several public establishments and likely involving alcohol as he reported drinking daily. Patient requests that the treatment team contact his . Review of Systems Except as stated in HPI: all other systems reviewed are Neg Objective Alert: Yes [place]: Person, Place, Date Mood: Anxious Affect: Labile Memory Intact: Immediate, Remote, Comment Hallucinations: Other (denies) Delusions: No Delusion Type: Paranoid (pertaining to his neighbor) Suicidal: Ideation Homicidal: Ideation (denies) Insight/Judgment limited insight, impulse control and judgment Labs Test 08/19/17 11:15 Urine Color YELLOW Urine Turbidity CLEAR Urine pH 6.5 Urine Specific [place] 1.011 Urine Protein NEG mg/dL Urine Glucose (UA) NEG mg/dL Urine Ketones NEG mg/dL Urine Occult Blood TRACE Urine Nitrite NEG Urine Bilirubin NEG Urine Urobilinogen LESS THAN 2.0 MG/DL Urine Leukocyte Esterase MOD Urine RBC 1 /hpf Urine WBC 13 /hpf Urine Bacteria OCC /hpf Urine Mucus FEW /lpf Microscopic Urinalysis Comment CULTURE INDICATED Date/Time Source Procedure Growth Status 08/19/17 11:15 Urine Clean Catch Urine Culture Pending Received Vitals/IOs Vital Signs Date Time Temp Pulse Resp B/P (MAP) Pulse Ox O2 Delivery O2 Flow Rate FiO2 08/19/17 05:12 97.8 70 18 111/66 (81) 96 08/16/17 18:37 Room Air Intake and Output 08/19/17 08/19/17 08/20/17 08:00 16:00 00:00 Intake Total 360 ml Balance 360 ml Assessment & Plan Problem List: (1) Unspecified psychosis ICD Codes: F29 - Unspecified psychosis not due to a substance or known physiological condition Assessment & Plan Patient noted to be intrusive with peers on the unit, poor impulse control, and paranoid about neighbor stealing his belongings. Team has made attempts to contact the common law with no success thus far; will continue to obtain collateral information. Will increase Abilify to 5 mg PO BID for psychosis. Discharge planning in progress. Justification for Cont. Inpt. At risk for further decompensation if at lower level of care. Lane Hernandez MD Aug 19, 2017 16:15
--- NOTE | 2017-08-19 16:36 | HHI.PR ---
Subjective Remarks Follow-up hypertension. Denies headache or dizziness. No shortness of breath or chest pain. Discussed with RN last seizure episode a year ago Objective Vitals Vital Signs Date Time Temp Pulse Resp B/P (MAP) Pulse Ox O2 Delivery O2 Flow Rate FiO2 08/19/17 05:12 97.8 70 18 111/66 (81) 96 08/18/17 18:00 98.4 92 18 170/74 (106) 100 I/O 08/18/17 08/18/17 08/18/17 08/19/17 08/19/17 08/19/17 07:00 15:00 23:00 07:00 15:00 23:00 Intake Total 0 ml 360 ml Balance 0 ml 360 ml Intake Oral 0 ml 360 ml # Voids 1 Result Diagram: 08/17/17 0715 Objective Remarks GENERAL: Well-developed, well-nourished in no distress SKIN: Warm and dry. HEAD: Atraumatic. Normocephalic. EYES: Pupils equal and round. No scleral icterus. No injection or drainage. ENT: No nasal bleeding or discharge. Mucous membranes pink and moist. NECK: Trachea midline. No JVD. CARDIOVASCULAR: Regular rate and rhythm. RESPIRATORY: No accessory muscle use. Clear to auscultation. Breath sounds equal bilaterally. GASTROINTESTINAL: Abdomen soft, non-tender, nondistended. MUSCULOSKELETAL: Extremities without clubbing, cyanosis, but with bilateral lower extremity pitting edema. No obvious deformities. NEUROLOGICAL: Awake and alert. No obvious cranial nerve deficits. Motor grossly within normal limits. Five out of 5 muscle strength in the arms and legs. Normal speech. Procedures none A/P Assessment and Plan This is a 77-year-old male with self-reported history bipolar disorder, seizure disorder, pancreatic cancer status post Whipple procedure who was brought in to [facility] under Luna act after being found wandering in the streets. 1. Psychosis Management as per psychiatry. Psychosis could be secondary to alcohol use versus neurocognitive disorder. Patient started on Abilify 5 mg when necessary at bedtime. Check urinalysis 2. Seizure disorder No seizure episodes. As per patient he is being treated on Depakote. Subtherapeutic level will increase Depakote to 1000 g twice a day and repeat levels in 2 days. Seizure precautions 3. Hypertension Patient denies any history of hypertension, however upon review of vital signs it is noted that the patient is hypertensive with a systolic blood pressure in the 170s. Improving continue amlodipine 5 mg by mouth daily. Consider switching to another agent if worsening pedal edema 4. History of pancreatic cancer status post Whipple procedure Patient has surgical abdominal scars. Continue Creon, currently there is no abdominal pain, weight loss or any other warning signs and symptoms. 5. Alcohol abuse. Counseled. [facility] protocol Low risk for DVT Jorge Mayer MD Aug 19, 2017 16:36
[2017-08-19 17:47] VITALS: BP 149/94; PULSE 61; RESP 18; TEMP 98.6; O2SAT 99
[2017-08-19] MEDS: ARIPiprazole 5 MG TAB PO SCH (21:00)
[2017-08-19] MEDS: REMOVE OLD NICOTINE PATCH T-DERMAL SCH (21:00)
[2017-08-19 21:28] VITALS: BP 121/68; PULSE 69; RESP 18; TEMP 97.6; O2SAT 98
[2017-08-20] MEDS: LORazepam 0.5 MG TAB age > 65 yrs PO PRN (01:19)
[2017-08-20 06:03] VITALS: BP 151/75; PULSE 78; RESP 16; TEMP 97.9; O2SAT 97
[2017-08-20] MEDS: DIVALPROEX DR 500 MG TABEC PO SCH ×2 (08:13→21:34)
[2017-08-20] MEDS: MULTIVITAMINS/MINERALS THERAPEUTIC TAB PO SCH (08:14)
[2017-08-20] MEDS: ARIPiprazole 5 MG TAB PO SCH ×2 (08:14→21:34)
[2017-08-20] MEDS: PANTOPRAZOLE SOD 20 MG DELAYED RELEASE TAB PO SCH (08:14)
[2017-08-20] MEDS: amLODIPine BESYLATE 5 MG TAB PO SCH (08:14)
[2017-08-20] MEDS: FOLIC ACID 1 MG TAB PO SCH (08:14)
[2017-08-20] MEDS: THIAMINE HCL 100 MG TAB PO SCH (08:14)
[2017-08-20] MEDS: FERROUS SULFATE 325 MG (65 MG ELEMENTAL IRON) TAB PO SCH ×2 (08:14→17:27)
[2017-08-20] MEDS: NICOTINE 21 MG/24 HR PATCH T-DERMAL SCH (08:15)
--- NOTE | 2017-08-20 14:05 | HHI.PR ---
Subjective Remarks Follow-up hypertension. Denies headache or dizziness. BP readings improving. Bilateral lower extremity edema not worse. States he is lactose intolerant but having ice cream. Discussed with RN Objective Vitals Vital Signs Date Time Temp Pulse Resp B/P (MAP) Pulse Ox O2 Delivery O2 Flow Rate FiO2 08/20/17 06:03 97.9 78 16 151/75 (100) 97 08/19/17 21:28 97.6 69 18 121/68 (85) 98 08/19/17 17:47 98.6 61 18 149/94 (112) 99 I/O 08/19/17 08/19/17 08/19/17 08/20/17 08/20/17 08/20/17 07:00 15:00 23:00 07:00 15:00 23:00 Intake Total 360 ml 360 ml Balance 360 ml 360 ml Intake Oral 360 ml 360 ml Result Diagram: 08/17/17 0715 Objective Remarks GENERAL: Well-developed, well-nourished in no distress EYES: Pupils equal and round. No scleral icterus. No injection or drainage. CARDIOVASCULAR: Regular rate and rhythm. RESPIRATORY: No accessory muscle use. Clear to auscultation. Breath sounds equal bilaterally. GASTROINTESTINAL: Abdomen soft, non-tender, nondistended. MUSCULOSKELETAL: Extremities without clubbing, cyanosis, but with bilateral lower extremity pitting edema which is improving. No obvious deformities. NEUROLOGICAL: Awake and alert. No obvious cranial nerve deficits. Motor grossly within normal limits. Five out of 5 muscle strength in the arms and legs. Normal speech. Procedures none A/P Assessment and Plan This is a 77-year-old male with self-reported history bipolar disorder, seizure disorder, pancreatic cancer status post Whipple procedure who was brought in to [facility] under Luna act after being found wandering in the streets. 1. Psychosis Management as per psychiatry. Psychosis could be secondary to alcohol use versus neurocognitive disorder. Patient started on Abilify 5 mg when necessary at bedtime. Abnormal urinalysis and culture growing lactobacillus 2. Seizure disorder No seizure episodes. As per patient he is being treated on Depakote. Subtherapeutic level will increase Depakote to 1000 g twice a day and repeat levels in 2 days. Seizure precautions 3. Hypertension Patient denies any history of hypertension, however upon review of vital signs it is noted that the patient is hypertensive with a systolic blood pressure in the 170s. Improving continue amlodipine 5 mg by mouth daily. Consider switching to another agent if worsening pedal edema 4. History of pancreatic cancer status post Whipple procedure Patient has surgical abdominal scars. Continue Creon, currently there is no abdominal pain, weight loss or any other warning signs and symptoms. 5. Alcohol abuse. Counseled. [facility] protocol Low risk for DVT Jorge Mayer MD Aug 20, 2017 14:05
[2017-08-20 16:50] VITALS: BP 144/94; PULSE 76; RESP 17; TEMP 98.5; O2SAT 100
[2017-08-20] MEDS: REMOVE OLD NICOTINE PATCH T-DERMAL SCH (21:00)
--- NOTE | 2017-08-20 22:26 | HHI.PYPN ---
Subjective Remarks Patient seen for follow up; chart reviewed. Patient noted to upset about not being able to contact his common law in [facility]. He continues to be noted to be intrusive as per nursing report. Patient recants moments which is told from different public places that he could not return and admitted to be drinking alcohol daily and heavily (1-2 bottles of wine). He states being interested in inpatient rehabiliation program but is worried about contacting is . Review of Systems Except as stated in HPI: all other systems reviewed are Neg Objective Alert: Yes [place]: Person, Place, Date Mood: Anxious Affect: Labile Memory Intact: Immediate, Remote, Comment Hallucinations: Other (denies) Delusions: No Delusion Type: Paranoid (pertaining to his neighbor) Suicidal: Ideation Homicidal: Ideation (denies) Insight/Judgment poor insight, limited impulse control and judgment Labs Date/Time Source Procedure Growth Status 08/19/17 11:15 Urine Clean Catch Urine Culture - Preliminary Lactobacillus Species Resulted Vitals/IOs Vital Signs Date Time Temp Pulse Resp B/P (MAP) Pulse Ox O2 Delivery O2 Flow Rate FiO2 08/20/17 16:50 98.5 76 17 144/94 (111) 100 08/16/17 18:37 Room Air Assessment & Plan Problem List: (1) Unspecified psychosis ICD Codes: F29 - Unspecified psychosis not due to a substance or known physiological condition Assessment & Plan Patient to continue current treatment, will continue to try and connect to his . Patient interested in inpatient rehabilitation programs Discharge planning in progress. Justification for Cont. Inpt. At risk for further decompensation if at lower level of care. Lane Hernandez MD Aug 20, 2017 22:26
[2017-08-21 05:56] VITALS: BP_SYST 119; BP_SYST 135; BP_DIAS 58; BP_DIAS 69; PULSE 105; PULSE 74; RESP 18; TEMP 97.6; TEMP 98.2; O2SAT 96; O2SAT 99
[2017-08-21] MEDS: PANTOPRAZOLE SOD 20 MG DELAYED RELEASE TAB PO SCH (08:00)
[2017-08-21] MEDS: NICOTINE 21 MG/24 HR PATCH T-DERMAL SCH (09:00)
[2017-08-21] MEDS: FOLIC ACID 1 MG TAB PO SCH (09:59)
[2017-08-21] MEDS: ARIPiprazole 5 MG TAB PO SCH (09:59)
[2017-08-21] MEDS: THIAMINE HCL 100 MG TAB PO SCH (09:59)
[2017-08-21] MEDS: FERROUS SULFATE 325 MG (65 MG ELEMENTAL IRON) TAB PO SCH ×2 (09:59→18:27)
[2017-08-21] MEDS: MULTIVITAMINS/MINERALS THERAPEUTIC TAB PO SCH (09:59)
[2017-08-21] MEDS: amLODIPine BESYLATE 5 MG TAB PO SCH (10:00)
[2017-08-21] MEDS: DIVALPROEX DR 500 MG TABEC PO SCH ×2 (10:00→21:34)
--- NOTE | 2017-08-21 14:20 | HHI.PR ---
Subjective Remarks Follow-up hypertension, leg edema and seizure disorder. Patient has no complaints denies headache or dizziness. No seizures. Discussed with RN, medically stable will sign off Objective Vitals Vital Signs Date Time Temp Pulse Resp B/P (MAP) Pulse Ox O2 Delivery O2 Flow Rate FiO2 08/21/17 05:56 98.2 74 18 135/69 (91) 99 08/20/17 16:50 98.5 76 17 144/94 (111) 100 I/O 08/20/17 08/20/17 08/20/17 08/21/17 08/21/17 08/21/17 07:00 15:00 23:00 07:00 15:00 23:00 Intake Total 360 ml Balance 360 ml Intake Oral 360 ml Result Diagram: 08/17/17 0715 Objective Remarks GENERAL: Well-developed, well-nourished in no distress EYES: Pupils equal and round. No scleral icterus. No injection or drainage. CARDIOVASCULAR: Regular rate and rhythm. RESPIRATORY: No accessory muscle use. Clear to auscultation. Breath sounds equal bilaterally. GASTROINTESTINAL: Abdomen soft, non-tender, nondistended. MUSCULOSKELETAL: Extremities without clubbing, cyanosis, but with bilateral lower extremity pitting edema which is almost resolved. No obvious deformities. NEUROLOGICAL: Awake and alert. No obvious cranial nerve deficits. Motor grossly within normal limits. Five out of 5 muscle strength in the arms and legs. Normal speech. Procedures none A/P Assessment and Plan This is a 77-year-old male with self-reported history bipolar disorder, seizure disorder, pancreatic cancer status post Whipple procedure who was brought in to [facility] under Luna act after being found wandering in the streets. 1. Psychosis Management as per psychiatry. Psychosis could be secondary to alcohol use versus neurocognitive disorder. Patient started on Abilify 5 mg when necessary at bedtime. Abnormal urinalysis and culture growing lactobacillus 2. Seizure disorder No seizure episodes. As per patient he is being treated on Depakote. Levels are therapeutic. Seizure precautions 3. Hypertension Patient denies any history of hypertension, however upon review of vital signs it is noted that the patient is hypertensive with a systolic blood pressure in the 170s. Improving continue amlodipine 5 mg by mouth daily. Consider switching to another agent if worsening pedal edema 4. History of pancreatic cancer status post Whipple procedure Patient has surgical abdominal scars. Continue Creon, currently there is no abdominal pain, weight loss or any other warning signs and symptoms. 5. Alcohol abuse. Counseled. [facility] protocol. No signs of withdrawal Low risk for DVT Discharge Planning Medically stable we will sign off Jorge Mayer MD Aug 21, 2017 14:20
--- NOTE | 2017-08-21 16:04 | HHI.PYPN ---
Subjective Remarks Patient was seen and case discussed with nursing. Patient is alert and oriented 3. Pleasant during the interview. Complaining of sedation with Abilify. Behaving well on the unit. Denies auditory or visual hallucinations. Depakote level 65 Objective Alert: Yes [place]: Person, Place, Date Mood: Anxious Affect: Appropriate Memory Intact: Immediate, Remote, Comment Hallucinations: Other (denies) Delusions: No Delusion Type: Paranoid (pertaining to his neighbor) Suicidal: Ideation Homicidal: Ideation (denies) Insight/Judgment Poor Labs Test 08/21/17 08:52 Valproic Acid (Depakene) Level 65 MCG/ML Date/Time Source Procedure Growth Status 08/19/17 11:15 Urine Clean Catch Urine Culture - Final Complete Vitals/IOs Vital Signs Date Time Temp Pulse Resp B/P (MAP) Pulse Ox O2 Delivery O2 Flow Rate FiO2 08/21/17 05:56 98.2 74 18 135/69 (91) 99 Assessment & Plan Problem List: (1) Unspecified psychosis ICD Codes: F29 - Unspecified psychosis not due to a substance or known physiological condition Assessment & Plan Change Abilify to nighttime Justification for Cont. Inpt. Patient would decompensate in a less restrictive setting Herman Curry DO Aug 21, 2017 16:04
[2017-08-21] MEDS ORDERED: GNP100TA3 PO (18:51)
[2017-08-21] MEDS ORDERED: AMLO5 PO (18:51)
[2017-08-21] MEDS ORDERED: DIVA500T PO (18:51)
[2017-08-21] MEDS ORDERED: ARIPiprazole 5 MG TAB PO ONE (21:00)
[2017-08-21] MEDS: REMOVE OLD NICOTINE PATCH T-DERMAL SCH (21:00)
[2017-08-22 05:37] VITALS: BP 127/64; PULSE 68; RESP 16; TEMP 98; O2SAT 97
[2017-08-22] MEDS: PANTOPRAZOLE SOD 20 MG DELAYED RELEASE TAB PO SCH (06:00)
[2017-08-22] MEDS: THIAMINE HCL 100 MG TAB PO SCH (09:00)
[2017-08-22] MEDS: amLODIPine BESYLATE 5 MG TAB PO SCH (09:00)
[2017-08-22] MEDS: NICOTINE 21 MG/24 HR PATCH T-DERMAL SCH (09:00)
[2017-08-22] MEDS: DIVALPROEX DR 500 MG TABEC PO SCH ×2 (09:28→20:53)
[2017-08-22] MEDS: MULTIVITAMINS/MINERALS THERAPEUTIC TAB PO SCH (09:29)
[2017-08-22] MEDS: FERROUS SULFATE 325 MG (65 MG ELEMENTAL IRON) TAB PO SCH ×2 (09:29→17:58)
[2017-08-22] MEDS: FOLIC ACID 1 MG TAB PO SCH (09:29)
--- NOTE | 2017-08-22 10:21 | HHI.PYPN ---
Subjective Remarks Patient was seen and case discussed with nursing. Today, patient is alert and oriented 3. He is adamant on calling his in [place] [facility], were apparently left there last week. Behaving well on the unit. No outbursts. Mildly confused per nursing. Compliant with medication. Objective Alert: Yes [place]: Person, Place, Date Mood: Anxious Affect: Other (perseverative) Memory Intact: Immediate, Remote, Comment Hallucinations: Other (denies) Delusions: No Delusion Type: Paranoid (pertaining to his neighbor) Suicidal: Ideation Homicidal: Ideation (denies) Insight/Judgment Poor Labs Date/Time Source Procedure Growth Status 08/19/17 11:15 Urine Clean Catch Urine Culture - Final Complete Vitals/IOs Vital Signs Date Time Temp Pulse Resp B/P (MAP) Pulse Ox O2 Delivery O2 Flow Rate FiO2 08/22/17 05:37 98.0 68 16 127/64 (85) 97 Assessment & Plan Problem List: (1) Unspecified psychosis ICD Codes: F29 - Unspecified psychosis not due to a substance or known physiological condition Assessment & Plan Continue current treatment plan Justification for Cont. Inpt. Patient will decompensate in a less restrictive setting Herman Curry DO Aug 22, 2017 10:21
[2017-08-22] MEDS: LIPASE/PROTEASE/AMYLASE (6,000/19,000/30,000) CAP PO SCH ×2 (13:30→17:58)
[2017-08-22] MEDS: LORazepam 0.5 MG TAB age > 65 yrs PO PRN (13:48)
[2017-08-22 18:06] VITALS: BP 168/81; PULSE 70; RESP 16; TEMP 97.7; O2SAT 98
[2017-08-22] MEDS: ARIPiprazole 10 MG TAB PO SCH (20:52)
[2017-08-22] MEDS: REMOVE OLD NICOTINE PATCH T-DERMAL SCH (20:55)
[2017-08-23] MEDS: PANTOPRAZOLE SOD 20 MG DELAYED RELEASE TAB PO SCH (06:13)
[2017-08-23 06:49] VITALS: BP 156/84; PULSE 90; RESP 16; TEMP 97.6; O2SAT 96
[2017-08-23] MEDS: NICOTINE 21 MG/24 HR PATCH T-DERMAL SCH (09:00)
[2017-08-23] MEDS: MULTIVITAMINS/MINERALS THERAPEUTIC TAB PO SCH (09:09)
[2017-08-23] MEDS: THIAMINE HCL 100 MG TAB PO SCH (09:09)
[2017-08-23] MEDS: FOLIC ACID 1 MG TAB PO SCH (09:10)
[2017-08-23] MEDS: amLODIPine BESYLATE 5 MG TAB PO SCH (09:10)
[2017-08-23] MEDS: FERROUS SULFATE 325 MG (65 MG ELEMENTAL IRON) TAB PO SCH ×2 (09:10→17:17)
[2017-08-23] MEDS: DIVALPROEX DR 500 MG TABEC PO SCH ×2 (09:10→21:00)
[2017-08-23] MEDS: LIPASE/PROTEASE/AMYLASE (6,000/19,000/30,000) CAP PO SCH ×3 (09:30→17:17)
--- NOTE | 2017-08-23 16:01 | HHI.PYPN ---
Subjective Remarks Patient seen for follow-up, chart reviewed. Patient found walking on the unit, calm and cooperative with interview. He states that he was able to acquire his hearing aid and cellphone over the weekend. He continues to worry about contacting his in [place] but has agreed to engage in substance rehabilitation program after discharge. He agrees to attend intake at [facility] for inpatient rehab program and will in the interim attend outpatient rehab. Patient admits that he has to stop drinking and agrees with plan. Review of Systems Except as stated in HPI: all other systems reviewed are Neg Objective Alert: Yes [place]: Person, Place, Date Mood: Calm Affect: Appropriate Memory Intact: Immediate, Remote, Comment Hallucinations: Other (denies) Delusions: No Delusion Type: Paranoid (pertaining to his neighbor) Suicidal: Ideation Homicidal: Ideation (denies) Insight/Judgment limited insight, fair impulse control and judgment Labs Date/Time Source Procedure Growth Status 08/19/17 11:15 Urine Clean Catch Urine Culture - Final Complete Vitals/IOs Vital Signs Date Time Temp Pulse Resp B/P (MAP) Pulse Ox O2 Delivery O2 Flow Rate FiO2 08/23/17 06:49 97.6 90 16 156/84 (108) 96 Assessment & Plan Problem List: (1) Unspecified psychosis ICD Codes: F29 - Unspecified psychosis not due to a substance or known physiological condition Assessment & Plan Patient with less paranoia, improved impulse control. Will continue treatment. Patient will be referred to [facility] for substance rehab program from alcohol use. Discharge planning in progress. Justification for Cont. Inpt. At risk for further decompensation if at lower level of care. Lane Hernandez MD Aug 23, 2017 16:01
[2017-08-23 18:03] VITALS: BP 156/72; PULSE 77; RESP 18; TEMP 98; O2SAT 100
[2017-08-23] MEDS: ARIPiprazole 10 MG TAB PO SCH (21:00)
[2017-08-24] MEDS: PANTOPRAZOLE SOD 20 MG DELAYED RELEASE TAB PO SCH (06:00)
[2017-08-24] MEDS: THIAMINE HCL 100 MG TAB PO SCH (09:44)
[2017-08-24] MEDS: FERROUS SULFATE 325 MG (65 MG ELEMENTAL IRON) TAB PO SCH (09:44)
[2017-08-24] MEDS: amLODIPine BESYLATE 5 MG TAB PO SCH (09:44)
[2017-08-24] MEDS: FOLIC ACID 1 MG TAB PO SCH (09:44)
[2017-08-24] MEDS: LIPASE/PROTEASE/AMYLASE (6,000/19,000/30,000) CAP PO SCH ×2 (09:44→13:09)
[2017-08-24] MEDS: MULTIVITAMINS/MINERALS THERAPEUTIC TAB PO SCH (09:44)
[2017-08-24] MEDS: DIVALPROEX DR 500 MG TABEC PO SCH (09:45)
[2017-08-24] MEDS ORDERED: PANT20 PO (12:23)
[2017-08-24] MEDS ORDERED: ARIP1TAB12 PO (12:23)
[2017-08-24] MEDS ORDERED: FERR325C PO (12:23)
[2017-08-24] MEDS ORDERED: CREON6 PO (12:23)
[2017-08-24] MEDS ORDERED: FOLI1TAB6 PO (12:23)
[2017-08-24] MEDS ORDERED: THERM PO (12:23)
--- NOTE | 2017-08-24 12:30 | HHI.DS ---
Psychiatry Discharge Summary Inpatient Psychiatric care?: Yes Advance Directive: No Reason Not Provided: DOENT HAVE Mental Health AdvanceDirective: No Health Care Proxy: No Admission Admission Date Aug 16, 2017 at 19:38 Admission Diagnosis: (1) Unspecified psychosis ICD Code: F29 - Unspecified psychosis not due to a substance or known physiological condition Brief History Patient is a 77 y/o man, with in group home, reports common law in [facility], retired living on social security benefits, domiciled alone, past psychiatric history of bipolar disorder as per patient, one prior remote psychiatric admission, no previous suicide attempt or self- injurious behavior, who was brought into the hospital under Luna act as it was reported patient was standing in the middle of the roadway and yelling fun of regulatory law specialist. Patient was transferred to the inpatient psychiatric unit for further management and evaluation. Patient was found walking around the unit but able to engage in interview today. Patient states that he was Luna acted for supposedly wandering. He stated that he has thought his common- law had arrived from [place] and he believes she was wandering here and had gone to look for her. He states that he had thought his had told him to meet him at a night club but upon arriving there around 2 AM found that it was closed which he then proceeded to a restaurant near and waited there about 20 minutes and decided to look for her at a school campus. He states that after being unsuccessful in finding her decided to go back to his house where he had difficulty charging his phone. He states that he then proceeded to knock on various neighbors homes at 3 AM and was found walking in the street had which police had brought him into the hospital. He also mentions that there was a neighbor that with previous criminal history had stolen something from him. Currently patient states feeling okay denies any SI or HI, AVH or delusions at this time. Patient later approach comic book writer and began providing demographic information. Patient was seen for second opinion. Patient was seen along with Dr. Hernandez and social welfare clerk Niki. Patient reports that he has been drinking alcohol heavily. Recent Luna act by law enforcement system the related with disorganized behavior secondary to alcohol intoxication. However, patient is now clinically sober, but continued to behave erratically, with frequent thought derailment, disorganized thoughts. He denies suicidal and homicidal ideation, he denies visual and auditory hallucinations. The patient is oriented 3. Tobacco Use In Past 30 Days: No Tobacco Past 30 Days Alcohol Use: Monthly or Less Hospital Course Patient is a 77 y/o man, with in group home, reports common law in [facility], retired living on social security benefits, domiciled alone, past psychiatric history of bipolar disorder as per patient, one prior remote psychiatric admission, no previous suicide attempt or self- injurious behavior, who was brought into the hospital under Luna act as it was reported patient was standing in the middle of the roadway and yelling fun of regulatory law specialist. Patient was started on aripiprazole and continued on Depakote which he tolerated well. Patient was noted to be with improved mood, participatory in groups and activities, and cooperative with staff with less intrusiveness. Upon discharge, patient stated he will continue adhere to rehabilitation program for substance use. He denied any SI, HI, AVH or delusions. He agrees to continue treatment and outpatient follow up for continuity of care. Supportive psychotherapy provided. Patient discharged to group home. I have counseled the patient regarding warning signs for need to return to the psychiatric emergency room as part of a general safety plan. Results Blood Pressure 156 / 72 Vital Signs Date Time Temp Pulse Resp B/P (MAP) Pulse Ox O2 Delivery O2 Flow Rate FiO2 08/23/17 18:03 98.0 77 18 156/72 (100) 100 Laboratory Results Test 08/17/17 07:15 08/21/17 08:52 Cholesterol Level 147 MG/DL (120-200) HDL Cholesterol 81.1 MG/DL (40.0-60.0) Hemoglobin A1c 5.4 % (4.3-6.0) LDL Cholesterol 51 MG/DL (0-99) Triglycerides Level 76 MG/DL (42-150) Valproic Acid (Depakene) Level 65 MCG/ML (50-100) Summary of Procedures none Pending results at discharge: No Medications # of Antipsychotic meds at D/C: 2 Approp Antipsych med options 1 - Minimum of three failed multiple trials of monotherapy. 2 - Documented plan to taper to monotherapy due to previous use of multiple meds OR cross-taper in progress at D/C. 3 - Documentation of augmentation of Clozapine. 4 - Justification other than those listed in allowable values 1-3, document here : Discharge Discharge Date: Aug 24, 2017 Discharge Diagnosis: (1) Unspecified psychosis ICD Code: F29 - Unspecified psychosis not due to a substance or known physiological condition Mental Status Exam at Disch Appearance/Behavior: appears stated age, in casual clothing, calm and cooperative with interview. Fair eye contact Speech: normal rate, tone and prosody Mood: good Affect: euthymic TP: linear, goal-directed, future oriented TC: denies SI, HI, AVH or delusions Insight/Impulse control/judgment: fair Pt Condition on Discharge: Stable Discharge Disposition: Discharge Home Discharge Instructions Diet Instructions: As Tolerated, No Restrictions Activities you can perform: Regular-No Restrictions Discharge Time > 30 minutes Discharge/Advance Care Plan Health Problems: (1) Unspecified psychosis Goals to promote your health * To prevent worsening of your condition and complications * To maintain your health at the optimal level Directions to meet your goals Take your medications as prescribed Follow your dietary instruction Follow activity as directed Keep your appointments as scheduled Take your immunizations and boosters as scheduled If your symptoms worsen call your PCP, if no PCP go to Urgent Care Center or Emergency Room For 14/06 questions related to your inpatient stay or results of tests pending at discharge, please contact Dr. Lane Hernandez at Smoking is Dangerous to Your Health. Avoid second hand smoking Lane Hernandez MD Aug 24, 2017 12:30
== END 2017-08-24 16:45 | disposition home or self-care (01) | DRG 885 ==
LOC: NEPC 14:41 → NEDA 08-16 19:38 → H260 08-16 21:19 → H4EA 08-18 12:57 → H260 08-18 12:59
PROVIDERS: ADMIT Student in an Organized Health Care Education/Training Program; ATTEND Student in an Organized Health Care Education/Training Program
DX: F22 Delusional disorders (principal); F02.81 Dementia in other diseases classified elsewhere, unspecified severity, with behavioral disturbance; G30.9 Alzheimer's disease, unspecified; G40.909 Epilepsy, unspecified, not intractable, without status epilepticus; F31.9 Bipolar disorder, unspecified; F10.20 Alcohol dependence, uncomplicated; I10 Essential (primary) hypertension; Z85.07 Personal history of malignant neoplasm of pancreas; Z90.411 Acquired partial absence of pancreas; Z91.19 Patient's noncompliance with other medical treatment and regimen; Z91.83 Wandering in diseases classified elsewhere
CPT/HCPCS: 80048; 80053; 80061; 80164; 80307; 81001; 83036; 85025; 87086; 93005; 96374; J2060; P9612